=== PATIENT | male | born 2000 ===

== ENCOUNTER 2023-03-12 19:20 | Emergency (ER) | payer SELFPAY ==
[2023-03-12 19:36] VITALS: BP 143/81; PULSE 70; RESP 16; TEMP 36.4; O2SAT 100
--- NOTE | 2023-03-12 20:12 | PC.NURSE ---
patient states wait is too long and left from triage area
== END 2023-03-12 20:34 | disposition left against medical advice (07) ==
LOC: ANHED 20:14
DX: R25.8 Other abnormal involuntary movements (principal)
CPT/HCPCS: 99199